=== PATIENT | male | born 1970 | race Caucasian/White ===

== ENCOUNTER 2024-09-15 06:19 | Day surgery (SDC) | payer BC, SELFPAY ==
[2024-09-13 14:02] VITALS: BMI 23.1
[2024-09-15 09:58] VITALS: BMI 23.1
[2024-09-15 09:59] VITALS: BP 148/92
[2024-09-15] MEDS: TYLENOL 1000 MG PO (10:15)
[2024-09-15] MEDS: NORMOSOL-R/PLASMALYTE-A 1000 IV (10:15)
[2024-09-15 13:12] VITALS: BP 122/82
[2024-09-15 13:15] VITALS: BP 117/75
[2024-09-15 13:30] VITALS: BP 127/73
[2024-09-15 13:45] VITALS: BP 125/88
[2024-09-15 14:00] VITALS: BP 128/81
== END 2024-09-15 14:10 | disposition home or self-care (01) ==
LOC: SDS 06:19
PROVIDERS: ATTENDING PHYSICIAN Surgery; FAMILY PHYSICIAN Student in an Organized Health Care Education/Training Program
DX: K64.8 Other hemorrhoids (principal); K60.2 Anal fissure, unspecified
CPT/HCPCS: 46260; 88304; 36415; 93005; C1776